=== PATIENT | male | born 1960 | race Caucasian/White ===

== ENCOUNTER 2016-12-19 18:14 | Emergency (ER) | payer OTHER ==
[~2016-12-19] VITALS: Ht 177.8 cm; Wt 123.9 kg
[~2016-12-19 18:14] MED LIST: ADVIL,NUPRIN,M200 MG PO; AMLODIPINE BESY10 MG PO; ASPERDRINK81 MG PO; ATARAX,VISTARIL25 MG PO; Advair 250/50 Diskus IH; Aspirin E.C. PO; BENZONATATE200 MG PO; CEFTIN500 MG PO; CIPRO500 MG PO; Combivent IH; DEPAKOTE250 MG PO; ECHINACEA HERB380 MG PO; ERGOCALCIF50000 UNIT PO; ESOMEPRAZOLE MA40 MG PO; FLEXERIL10 MG PO; FLONASE16 G1 BOTH NARES; FLONASE16 GM NS; FORTAMET500 MG PO; Flexeril PO; Flonase BOTH NARES; GABAPENTIN300 MG PO; GLIPIZIDE10 MG PO; GLUCOPHAGE1000 MG; GLUCOPHAGE1000 MG PO; GLUCOTROL XL5 MG PO; Glucophage PO; Glucotrol XL PO; HYDROCODON-ACE1 EAC7 PO; IBUPROFEN800 MG PO; KLONOPIN2 MG PO; KlonoPIN PO; LASIX20 MG PO; LASIX40 MG PO; LISINOPRIL40 MG PO; LOVAZA1 GM PO; LOW DOSE ASPIRI81 M2 PO; METFORMIN HCL1000 MG PO; MOBIC15 MG PO; MULTIPLE VITAM1 EACH PO; MULTIVITAMIN W1 EAC3 PO; MULTIVITAMIN1 EAC2 PO; MUSCLE RELAXER; NASONEX17 GM BOTH NARES; NEURONTIN300 MG PO; NEXIUM40 MG PO; NORCO 5/3251 TABLET PO; NORVASC10 MG; NORVASC10 MG PO; Neurontin PO; Norvasc PO; PERCOCET 5/31 TABLET PO; PRILOSEC OTC20 MG PO; PRINIVIL40 MG PO; Percocet 5/325,Endoc PO; Proventil,Ventolin H IH; SPECTAZOLE15 G1 TP; TESSALON200 MG PO; TRAMADOL HCL50 MG PO; Theragran PO; ULTRAM ER100 MG; VALIUM10 MG PO; VITAMIN D250000 UNIT PO; Vibramycin, Doryx PO; Vicodin,Norco 5/325 PO; Vitamin D, Drisdol PO; ZESTRIL40 MG PO; ZOFRAN ODT4 MG PO; ZOFRAN4 MG PO; ZYRTEC10 M2 PO; Zestril,Prinivil PO; predniSONE PO
[2016-12-19] MEDS ORDERED: LEVAQUIN500 MG PO (22:17)
[2016-12-19 22:49] VITALS: BP 124/82
== END 2016-12-19 22:50 | disposition home or self-care (01) ==
LOC: EME 18:14
DX: J44.0 Chronic obstructive pulmonary disease with (acute) lower respiratory infection (principal); J20.9 Acute bronchitis, unspecified; J34.89 Other specified disorders of nose and nasal sinuses; J45.909 Unspecified asthma, uncomplicated; E11.9 Type 2 diabetes mellitus without complications; E78.5 Hyperlipidemia, unspecified; I10 Essential (primary) hypertension; K21.9 Gastro-esophageal reflux disease without esophagitis; Z87.442 Personal history of urinary calculi; Z87.891 Personal history of nicotine dependence; Z79.84 Long term (current) use of oral hypoglycemic drugs
CPT/HCPCS: 71020; 94640; 99281; 99284